=== PATIENT | female | born 1995 | race Caucasian/White ===

== ENCOUNTER 2016-12-30 20:29 | Emergency (ER) | payer OTHER ==
--- NOTE | ~2016-12-30 | CT4 ---
[facility] A Service of [facility] RADIOLOGY TEXT RESULTS PATIENT: VY BUCIO LOCATION: SED : [birth year] UNIT #: [id number] AGE: [address]: LATOYA MENDOZA SEX: F ORDER DR: [id number] [place] [id number] E MR#: [id number] Acc #: [id number] NAME: VY BUCIO : 1995 SEX: F STUDY DATE/TIME: 12/30/2016 20:22 UNIT: SED ROOM: STUDY DESCRIPTION: CT Abd and Pelv Wo Cont Attending Physician: Latoya Mendoza Ordering Physician: Physician Non-Staff Primary Care Physician: Maral Zelaya A.P.R.N. MEDICAL IMAGING REPORT This report is preliminary unless electronic signature is present. EXAM CT abdomen and pelvis without contrast HISTORY Left flank pain for 1 hour. Pelvic pain and nausea. No history of cancer. TECHNIQUE This CT examination was performed with one or more of the following radiation dose reduction techniques: automatic exposure control, adjustment of mA and/or kV according to patient size, and iterative reconstruction. COMMENT CT of the abdomen and pelvis performed without IV or oral contrast media using the urinary tract stone protocol. The lack of intravenous and oral contrast media limits evaluation for pathology other than urinary tract calculus disease. Lung bases are clear. CT ABDOMEN: The stomach is distended with debris. Please correlate for history of a recent meal. If there is no history for a recent meal, please evaluate for gastroparesis. Liver unremarkable. The gallbladder is partially contracted. Spleen unremarkable. Adrenal glands within normal limits. Pancreas unremarkable. Right kidney no intrarenal calculus or hydronephrosis. Left kidney 3 mm nonobstructing upper polar calculus, tiny nonobstructing calculus just inferior to this. Additionally, there is new ndxd-tj-nopjrwwt hydronephrosis on the left with hydroureter. There is an obstructing calculus at the distal left ureter just proximal to the ureterovesical junction which measures about 4 mm in dimension. There is stranding around the distal left ureter in this [facility] A Service of [facility] & [facility] RADIOLOGY TEXT RESULTS PATIENT: VY BUCIO LOCATION: SED : 93 UNIT #: [id number] AGE: [address]: LATOYA MENDOZA SEX: F ORDER DR: region consistent with some associated inflammation. The bladder is largely decompressed. Likely physiologic right adnexal cyst. Evaluation of the remainder of the pelvis shows no free fluid in the pelvis. The appendix is radiographically normal. There is no bowel obstruction suspected. There is no free intraperitoneal air. No abdominal aortic aneurysm. Prominent mesenteric lymph nodes are very nonspecific. IMPRESSION There has been the interval development of [id number]-[id number] left-sided hydroureteronephrosis secondary to the presence of an obstructing calculus in the distal left ureter. The calculus measures about 4 mm dimension and seen just proximal to the ureterovesical junction. There is surrounding edema of the ureteral wall and stranding in the adjacent soft tissues consistent with some inflammation. There are additionally small nonobstructing left-sided intrarenal calculi. Dictated by... Kay Peace M.D. THIS IS AN ELECTRONICALLY VERIFIED REPORT Kay Peace M.D. at 01/01/2017 7:47 AM MARCY/erica TD: 01/01/2017 06:28 JOB #: [id number] MEDICAL IMAGING REPORT
[2016-12-30 20:21] LABS: BASOPHIL% 0.4 % (0-2.5); EOSINOPHIL# 0.1 X10e3 (0-0.7); EOSINOPHIL% 1.4 % (0.0-7.0); HEMATOCRIT 42.6 % (35.0-45.0); HEMOGLOBIN 14.2 gm/dL (12.0-16.0); LYMPHOCYTE# 3.2 X10e3 (1.0-3.5); LYMPHOCYTE% 31.9 % (17.0-45.0); MEAN CELL VOLUME 86.6 FL (83-96); MEAN CORPUSCULAR HEMOGLOBIN 28.8 PG (28-34); MEAN CORPUSCULAR HGB CONC 33.3 g/dL (30-36); MEAN PLATELET VOLUME 7.5 FL (6.5-11.5); MONOCYTE# 0.9 X10e3 (0-1.0); MONOCYTE% 8.7 % (3.0-12.0); NEUTROPHIL# 5.8 X10e3 (1.5-7.1); NEUTROPHIL% 57.6 % (40-75); PLATELET COUNT 312 X10e3 (140-420); RED BLOOD COUNT 4.92 X10e (3.90-5.30); RED CELL DISTRIBUTION WIDTH 13.8 % (11.0-15.5); WHITE BLOOD COUNT 10.1 X10e3 (4.0-10.5)
[2016-12-30 20:23] LABS: DIFF IND NO
[~2016-12-30 20:29] MED LIST: ALBUTEROL17 GM; AMITRIPTYLINE H75 MG; NEURONTIN300 MG; ZOLOFT100 MG
[2016-12-30 20:42] LABS: ALBUMIN SERUM 4.2 g/dL (3.5-5.0); ALKALINE PHOSPHATASE 55 U/L (32-92); ALT (SGPT) 18 U/L (10-40); AST (SGOT) 22 U/L (10-42); BILIRUBIN, DIRECT 0.1 mg/dL (0.0-0.2); BILIRUBIN,INDIRECT 0.4 mg/dL (0.0-0.9); BILIRUBIN,TOTAL 0.5 mg/dL (0.2-2.0); BLOOD UREA NITROGEN 12 mg/dL (9-23); BUN/CREATININE RATIO 17.14; CALCIUM SERUM 9.2 mg/dL (8.4-10.2); CARBON DIOXIDE 28 mmol/L (22-31); CHLORIDE 104 mmol/L (100-111); CREATININE SERUM 0.7 mg/dL (0.6-1.4); GLOM FILT RATE Estimated ABOVE60 mL/min (>60); GLUCOSE FASTING 100 mg/dL (70-110); POTASSIUM 3.5 mmol/L (3.5-5.1); PROTEIN TOTAL SERUM 7.7 g/dL (6.0-8.3); SODIUM 137 mmol/L (135-145)
[2016-12-30 21:07] LABS: URINE SOURCE CLEAN CATCH
[2016-12-30 21:09] LABS: URINE APPEARANCE CLEAR; URINE BILIRUBIN NEG (NEG); URINE BLOOD 3+ (NEG); URINE COLOR YELLOW; URINE GLUCOSE NEG (NORM); URINE KETONE NEG (NEG); URINE LEUKOCYTE ESTERASE NEG (NEG); URINE NITRATE POS (NEG); URINE PROTEIN NEG (NEG); URINE SPECIFIC GRAVITY 1.015 (1.003-1.035)
[2016-12-30 21:10] LABS: MICRO INDICATED? YES
[2016-12-30 21:11] LABS: CULTURE INDICATED? NO; URINE BACTERIA NEG (NEG); URINE RBC 100-200 /[HPF] (0-2); URINE WBC NEG /[HPF] (0-5)
[2016-12-30 21:12] LABS: URINE SQUAMOUS EPITHELIAL CELL FEW /[HPF]
[2016-12-30] MEDS ORDERED: FLOMAX0.4 M1 DOB (22:11)
[2016-12-30] MEDS ORDERED: ZOFRAN ODT4 MG PO (22:12)
[2016-12-30] MEDS ORDERED: BACTRIM 400-801 TA1 PO (22:12)
[2016-12-30] MEDS ORDERED: IBUPROFEN800 MG PO (22:13)
[2017-07-09] MEDS ORDERED: AUGMENTIN PO (19:46)
[2017-07-09] MEDS ORDERED: PREDNISONE PO (19:46)
== END 2016-12-30 22:13 | disposition home or self-care (01) ==
LOC: SED 20:29
PROVIDERS: Physician Assistant
DX: N13.2 Hydronephrosis with renal and ureteral calculous obstruction (principal); R03.0 Elevated blood-pressure reading, without diagnosis of hypertension; J45.909 Unspecified asthma, uncomplicated; F41.9 Anxiety disorder, unspecified; F32.9 Major depressive disorder, single episode, unspecified; Z87.442 Personal history of urinary calculi
CPT/HCPCS: 36415; 74176; 80048; 80076; 81003; 84703; 85025; 96361; 96374; 96375; 99284; J1885; J2405